=== PATIENT | female | born 1940 | race American Indian/Alaskan Native ===

== ENCOUNTER 2017-06-20 10:35 | Emergency (ER) | payer SELFPAY ==
[2017-06-20 10:50] VITALS: BP 191/75
== END 2017-06-20 13:42 | disposition left against medical advice (07) ==
LOC: ED 10:35
DX: R51 Headache (principal); Z53.21 Procedure and treatment not carried out due to patient leaving prior to being seen by health care provider

== ENCOUNTER 2020-05-26 08:09 | Observation (INO) | payer MEDICARE ==
[2020-05-26] MEDS ORDERED: ASPIRIN 325 MG TAB PO ONE (08:43)
--- NOTE | 2020-05-26 08:48 | Emergency Department Report ---
ED Chest Pain HPI - General Chief Complaint: Chest Pain Stated Complaint: CHEST PAIN/SOB Time Seen by Provider: 05/26/20 08:38 Source: EMS Mode of arrival: Stretcher Limitations: No Limitations - History of Present Illness Initial Comments: Patient is a 71-eapr-bzb-[place] female with past medical history of hypertension diabetes end-stage renal disease who is presenting with chest discomfort. States the discomfort was located center chest accompanied with shortness of breath. States this started before she was placed on the dialysis machine. Patient states she did not get any of her dialysis today. States the pain resolved spontaneously. She is denies any cough cold congestion fevers chills nausea vomiting at this time. - Related Data Allergies Allergy/AdvReac Type Severity Reaction Status Date / Time No Known Allergies Allergy Unverified 06/20/17 10:50 Heart Score - HEART Score History: Slightly suspicious EKG: Non-specific Age: > 65 Risk factors: 1-2 risk factors Troponin: < normal limit HEART Score: 4 - EKG Read Time Time EKG Completed: 08:37 EKG Read Time: 08:40 ED Review of Systems ROS: Stated complaint: CHEST PAIN/SOB Other details as noted in HPI Comment: All other systems reviewed and negative ED Past Medical Hx - Past Medical History Hx Hypertension: Yes Hx Kidney Stones: Yes Additional medical history: Anemia - Surgical History Additional Surgical History: Hysterectomy - Social History Smoking Status: Never Smoker ED Physical Exam - General Limitations: No Limitations General appearance: alert, in no apparent distress - Head Head exam: Present: atraumatic, normocephalic - Eye Eye exam: Present: normal appearance - ENT ENT exam: Present: mucous membranes moist - Neck Neck exam: Present: normal inspection - Respiratory Respiratory exam: Present: normal lung sounds bilaterally. Absent: respiratory distress, wheezes, rales, rhonchi - Cardiovascular Cardiovascular Exam: Present: regular rate, normal rhythm, normal heart sounds. Absent: systolic murmur, diastolic murmur, rubs, gallop - GI/Abdominal GI/Abdominal exam: Present: soft, normal bowel sounds. Absent: distended, tende rness, guarding, rebound - Extremities Exam Extremities exam: Present: normal inspection - Back Exam Back exam: Present: normal inspection - Neurological Exam Neurological exam: Present: alert, oriented X3 - Psychiatric Psychiatric exam: Present: normal affect, normal mood - Skin Skin exam: Present: warm, dry, intact, normal color. Absent: rash ED Course Vital Signs 05/26/20 08:16 Temperature 97.7 F Pulse Rate 70 Respiratory 18 Rate Blood Pressure 154/65 O2 Sat by Pulse 96 Oximetry DAVIDSON score - Davidson Score Age > 65: (1) Yes Aspirin use within the Past 7 Days: (0) No 3 or more CAD Risk Factors: (1) Yes 2 or more Angina events in past 24 hrs: (0) No Known CAD with more than 50% Stenosis: (0) No Elevated Cardiac Markers: (0) No ST Deviation Greater than 0.5mm: (0) No DAVIDSON Score: 2 ED Medical Decision Making - Lab Data Result diagrams: 05/26/20 08:48 05/26/20 08:48 Lab Results 05/26/20 05/26/20 05/26/20 Range/Units 08:48 08:48 08:48 WBC 5.1 (4.5-11.0) K/mm3 RBC 2.97 L (3.65-5.03) M/mm3 Hgb 9.6 L (10.1-14.3) gm/dl Hct 28.4 L (30.3-42.9) % MCV 96 (79-97) fl MCH 32 (28-32) pg MCHC 34 (30-34) % RDW 13.1 L (13.2-15.2) % Plt Count 182 (140-440) K/mm3 Lymph % (Auto) 26.8 (13.4-35.0) % [place] % (Auto) 8.7 H (0.0-7.3) % Eos % (Auto) 2.3 (0.0-4.3) % Baso % (Auto) 0.4 (0.0-1.8) % Lymph # (Auto) 1.4 (1.2-5.4) K/mm3 [place] # (Auto) 0.4 (0.0-0.8) K/mm3 Eos # (Auto) 0.1 (0.0-0.4) K/mm3 Baso # (Auto) 0.0 (0.0-0.1) K/mm3 Seg Neutrophils % 61.8 (40.0-70.0) % Seg Neutrophils # 3.1 (1.8-7.7) K/mm3 PT 14.6 (12.2-14.9) Sec. INR 1.15 H (0.87-1.13) APTT 39.2 H (24.2-36.6) Sec. Sodium (137-145) mmol/L Potassium (3.6-5.0) mmol/L Chloride (98-107) mmol/L Carbon Dioxide (22-30) mmol/L Anion Gap mmol/L BUN (7-17) mg/dL Creatinine (0.6-1.2) mg/dL Estimated GFR ml/min BUN/Creatinine Ratio % Glucose (65-100) mg/dL Calcium (8.4-10.2) mg/dL Troponin T < 0.010 (0.00-0.029) ng/mL 05/26/20 Range/Units 08:48 WBC (4.5-11.0) K/mm3 RBC (3.65-5.03) M/mm3 Hgb (10.1-14.3) gm/dl Hct (30.3-42.9) % MCV (79-97) fl MCH (28-32) pg MCHC (30-34) % RDW (13.2-15.2) % Plt Count (140-440) K/mm3 Lymph % (Auto) (13.4-35.0) % [place] % (Auto) (0.0-7.3) % Eos % (Auto) (0.0-4.3) % Baso % (Auto) (0.0-1.8) % Lymph # (Auto) (1.2-5.4) K/mm3 [place] # (Auto) (0.0-0.8) K/mm3 Eos # (Auto) (0.0-0.4) K/mm3 Baso # (Auto) (0.0-0.1) K/mm3 Seg Neutrophils % (40.0-70.0) % Seg Neutrophils # (1.8-7.7) K/mm3 PT (12.2-14.9) Sec. INR (0.87-1.13) APTT (24.2-36.6) Sec. Sodium 130 L (137-145) mmol/L Potassium 4.2 (3.6-5.0) mmol/L Chloride 93.7 L (98-107) mmol/L Carbon Dioxide 29 (22-30) mmol/L Anion Gap 12 mmol/L BUN 32 H (7-17) mg/dL Creatinine 4.7 H (0.6-1.2) mg/dL Estimated GFR 11 ml/min BUN/Creatinine Ratio 7 % Glucose 116 H (65-100) mg/dL Calcium 8.7 (8.4-10.2) mg/dL Troponin T (0.00-0.029) ng/mL - EKG Data -: EKG Interpreted by Hi EKG shows normal: sinus rhythm, axis, intervals, QRS complexes, ST-T waves Rate: normal - EKG Data Interpretation: normal EKG (except occational PAC) - Radiology Data [facility] [address] [place] [address] XRay Report Signed Patient: MARINA FARLEY MR#: [id number] : 1940 Acct:[id number] Age/Sex: 80 / F ADM Date: 05/26/20 Loc: ED Attending Dr: Ordering Physician: MIGUELINA LARIOS MD Date of Service: 05/26/20 Procedure(s): XR chest 1V ap Accession Number(s): [id number] cc: MIGUELINA LARIOS MD Fluoro Time In Minutes: CHEST 1 VIEW 05/26/2020 8:58 AM INDICATION / CLINICAL INFORMATION: chest pain. COMPARISON: None available. FINDINGS: SUPPORT DEVICES: None. HEART / MEDIASTINUM: No significant abnormality. LUNGS / PLEURA: Mild increased perihilar prominence could represent some increased pulmonary vascularity most prominently in the right perihilar region. No pleural effusion or focal consolidation No pneumothorax. ADDITIONAL FINDINGS: No significant additional findings. IMPRESSION: 1. Increased perihilar interstitial prominence and pulmonary vascularity suggested. Shon is most significant right hilum. Findings appear to represent pulmonary vascularity however follow-up r ecommended. Signer Name: James Patel MD Signed: 05/26/2020 9:19 AM Workstation Name: [id number] - Medical Decision Making Patient is chest pain-free at this time however her heart score is 4. Patient be admitted to the hospitalist service for further cardiac evaluation. Critical Care Time: Yes (30) Critical care attestation.: If time is entered above; I have spent that time in minutes in the direct care of this critically ill patient, excluding procedure time. ED Disposition Clinical Impression: Chest pain, ESRD (end stage renal disease) Disposition: DC-01 TO HOME OR SELFCARE Is pt being admited?: Yes Does the pt Need Aspirin: No Condition: Stable Time of Disposition: 10:44
[2020-05-26 09:08] LABS: Basophils % (Auto) 0.4 % (0.0-1.8); Eosinophils # (Auto) 0.1 K/mm3 (0.0-0.4); Eosinophils % (Auto) 2.3 % (0.0-4.3); Hematocrit 28.4 % (30.3-42.9); Hemoglobin 9.6 gm/dl (10.1-14.3); Lymphocytes # (Auto) 1.4 K/mm3 (1.2-5.4); Lymphocytes % (Auto) 26.8 % (13.4-35.0); Mean Corpuscular HGB Conc 34 % (30-34); Mean Corpuscular Volume 96 fl (79-97); Monocytes # (Auto) 0.4 K/mm3 (0.0-0.8); Monocytes % (Auto) 8.7 % (0.0-7.3); Platelet Count 182 K/mm3 (140-440); Red Blood Count 2.97 M/mm3 (3.65-5.03); Red Cell Distribution Width 13.1 % (13.2-15.2)
[2020-05-26 09:17] LABS: INR 1.15 (0.87-1.13)
[2020-05-26 09:18] LABS: Partial Thromboplastin Time 39.2 Sec. (24.2-36.6)
--- NOTE | 2020-05-26 09:23 | XRay Report ---
CHEST 1 VIEW 05/26/2020 8:58 AM INDICATION / CLINICAL INFORMATION: chest pain. COMPARISON: None available. FINDINGS: SUPPORT DEVICES: None. HEART / MEDIASTINUM: No significant abnormality. LUNGS / PLEURA: Mild increased perihilar prominence could represent some increased pulmonary vascular ity most prominently in the right perihilar region. No pleural effusion or focal consolidation No pne umothorax. ADDITIONAL FINDINGS: No significant additional findings. IMPRESSION: 1. Increased perihilar interstitial prominence and pulmonary vascularity suggested. Shon is most sign ificant right hilum. Findings appear to represent pulmonary vascularity however follow-up recommended . Signer Name: James Patel MD Signed: 05/26/2020 9:19 AM Workstation Name: [id number]
[2020-05-26 09:46] LABS: Calcium 8.7 mg/dL (8.4-10.2)
--- NOTE | 2020-05-26 11:28 | History and Physical Report ---
History of Present Illness Date of examination: 05/26/20 Date of admission: 05/26/20 10:45 Chief complaint: Chest pain History of present illness: Patient is a 52-nrzn-cyr-[place] female with past medical history of hypertension diabetes end-stage renal disease who is presented to the ER today with complaints of chest discomfort. States the discomfort was located center chest accompanied with shortness of breath. States this started before she was placed on the dialysis machine. Patient states she did not get any of her dialysis today. States the pain resolved spontaneously. She is denies any cough cold congestion fevers chills nausea vomiting at this time. Past medical History: h/o end-stage renal disease on hemodialysis, diabetes mellitus type 2, hypertension Past surgical History: s/p left arm AV fistula placement Social History: Lives with family, denies any smoking, drinking and elicit drug abuse. Family History: Significant for hypertension Review of System: Constitutional: no fever, no chills, no weight loss Ears, eyes, nose, mouth and throat: no nasal congestion, no nasal discharge, no sinus pressure, no vision change, no red eye. Neck: No neck pain or rigidity. Cardiovascular: + chest pain, no orthopnea, no palpitations, no leg swelling Respiratory: No shortness of breath, no cough, no congestion, no wheezing Gastrointestinal: no abdominal pain, no nausea, no vomiting Genitourinary : no dysuria, no hematuria Musculoskeletal: no joint swelling or muscle ache Integumentary: no rash, no pruritis Neurological: no parathesias, no numbness, no tingling Endocrine: no cold or heat intolerance, no polyuria or polydipsia Hematologic/Lymphatic: no easy bruising, no easy bleeding, no gland swelling Allergic/Immunologic: no urticaria, no angioedema. Medications and Allergies Allergies Allergy/AdvReac Type Severity Reaction Status Date / Time No Known Allergies Allergy Unverified 06/20/17 10:50 Home Medications Medication Instructions Recorded Confirmed Last Taken Type Aspirin [Adult Aspirin] 81 mg PO QDAY 05/26/20 05/26/20 Unknown History Divalproex [Jama ESCOTO] 125 mg PO BID 05/26/20 05/26/20 Unknown History Hydralazine HCl 100 mg PO TID 05/26/20 05/26/20 Unknown History Insulin Lispro Prot/Lispro 6 unit SQ HS 05/26/20 05/26/20 Unknown History [HumaLOG MIX 75/25] Metoprolol [Lopressor] 12.5 mg PO BID 05/26/20 05/26/20 Unknown History allopurinoL [Zyloprim] 50 mg PO QDAY 05/26/20 05/26/20 Unknown History amLODIPine [Norvasc] 10 mg PO DAILY 05/26/20 05/26/20 Unknown History cloNIDine [Catapres] 0.2 mg PO TID 05/26/20 05/26/20 Unknown History Exam - Physical Exam Narrative exam: GENERAL: well-developed and well-nourished elderly -[place]iber[place] female lying on bed appeared to be in no discomfort. HEENT: Normocephalic. Atraumatic. No conjunctival congestion or icterus. Patient has moist mucous membranes. NECK: Supple. Trachea midline. CHEST/LUNGS: Clear to auscultated bilaterally, breathing nonlabored. No wheezes crackles or rhonchi. HEART/CARDIOVASCULAR: Regular in rate and rhythm. S1 and S2 positive. ABDOMEN: Abdomen is soft, nontender. Patient has normal bowel sounds. SKIN: There is no rash. Warm and dry. NEURO: No focal motor deficit. Follows command. MUSCULOSKELETAL: No joint effusion or tenderness. EXTRIMITY: No edema, no cyanosis or clubbing. PSYCH: Cooperative. - Constitutional Vitals: Temp Pulse Resp BP Pulse Ox 97.7 F 70 18 154/65 96 05/26/20 08:16 05/26/20 08:16 05/26/20 08:16 05/26/20 08:16 05/26/20 08:16 HEART Score - HEART Score EKG: Non-specific Age: > 65 Risk factors: 1-2 risk factors Troponin: Troponin T < 0.010 ng/mL (0.00-0.029) 05/26/20 08:48 Troponin: < normal limit Results - Labs CBC & Chem 7: 05/26/20 08:48 05/26/20 08:48 Labs: Abnormal lab results 05/26/20 05/26/20 05/26/20 Range/Units 08:48 08:48 08:48 RBC 2.97 L (3.65-5.03) M/mm3 Hgb 9.6 L (10.1-14.3) gm/dl Hct 28.4 L (30.3-42.9) % RDW 13.1 L (13.2-15.2) % [place] % (Auto) 8.7 H (0.0-7.3) % INR 1.15 H (0.87-1.13) APTT 39.2 H (24.2-36.6) Sec. Sodium 130 L (137-145) mmol/L Chloride 93.7 L (98-107) mmol/L BUN 32 H (7-17) mg/dL Creatinine 4.7 H (0.6-1.2) mg/dL Glucose 116 H (65-100) mg/dL Assessment and Plan Acute chest pain -- will admit to telemetry bed - monitor with serial CE and EKG - will place on Aspirin, statin - as needed SL NTG and iv morphin for pain - Monitor BP, add betablocker and ACEI if BP tolerates - order 2D echo and stress test in the am - NPO after midnight End-stage renal disease on hemodialysis, consulted shaper hand Diabetes mellitus type 2, resume home insulin regimen, consistent carb diet, SSI Hypertension, resume home medications, hydralazine as needed IV for SBP greater than 160 Anemia of chronic disease, monitor H&H Mild hyponatremia, repeat BMP in the morning - provide DVT Px with heparin
[2020-05-26] MEDS ORDERED: ONDANSETRON 4 MG/2 ML INJ IV PRN (11:29)
[2020-05-26] MEDS ORDERED: hydrALAZINE 20 MG/1 ML INJ IV PRN (11:29)
[2020-05-26] MEDS ORDERED: ACETAMINOPHEN 325 MG TAB PO PRN (11:29)
[2020-05-26] MEDS ORDERED: oxyCODONE /ACETAMINOPHEN 5-325MG TAB PO PRN (11:29)
[2020-05-26] MEDS: HEPARIN 5,000 UNIT/1 ML VIAL SUB-Q SCH ×2 (14:22→22:58)
--- NOTE | 2020-05-26 15:58 | Event Note ---
Date: 05/26/20 Appreciate nephrology consult, official consult to follow. In short, this is a patient with ESRD on HD who presents with chest pain on HD (only received few minutes of treatment). Reviewed labs, vitals; plan for HD in AM if no obvious chest pain or active cardiac disease noted
[2020-05-26] MEDS ORDERED: SODIUM CHLORIDE 0.9% 100 ML IV PRN (15:59)
[2020-05-26] MEDS ORDERED: INSULIN NPH/REGULAR 70/30 INJ SUB-Q SCH (18:00)
[2020-05-26 18:27] LABS: Hepatitis B Surface Antigen Non-Reactive (Negative); Hepatitis C Virus Antibody Non-Reactive (NonReactive)
[2020-05-26] MEDS ORDERED: cloNIDine 0.2 MG TAB PO SCH (20:00)
[2020-05-26] MEDS ORDERED: LISPRO SQ SCH (22:00)
[2020-05-26] MEDS ORDERED: METOPROLOL TARTRATE 25 MG TAB PO SCH (22:00)
[2020-05-26] MEDS ORDERED: INSULIN LISPRO PROT SQ SCH (22:00)
[2020-05-26] MEDS ORDERED: DIVALPROEX DR 125 MG TAB PO SCH (22:00)
[2020-05-26] MEDS: INSULIN REGULAR, HUMAN 100 UNITS/1 ML SUB-Q SCH (22:00)
[2020-05-26] MEDS: hydrALAZINE 100 MG TAB PO SCH (22:57)
[2020-05-26] MEDS: METOPROLOL TARTRATE 25 MG TAB PO SCH (22:57)
[2020-05-26] MEDS: DOCUSATE SODIUM 100 MG CAP PO SCH (22:57)
[2020-05-27] MEDS ORDERED: REGADENOSON 0.4 MG/5 ML INJ IV ONE (06:39)
[2020-05-27] MEDS: HEPARIN 5,000 UNIT/1 ML VIAL SUB-Q SCH ×2 (06:47→15:55)
[2020-05-27] MEDS: INSULIN REGULAR, HUMAN 100 UNITS/1 ML SUB-Q SCH ×3 (09:13→15:55)
--- NOTE | 2020-05-27 09:55 | Consultation ---
History of Present Illness - Reason for Consult Consult date: 05/27/20 end stage renal disease Requesting physician: LUIS A DENIS - History of Present Illness This is a 80 year-old woman with ESRD who presents for chest pain Patient usually dialyzes // at [facility]. Last HD 05/26, was unable to complete due to chest pain Currently, patient denies any issues including dyspnea, edema, access issues, nausea, vomiting, headaches. Past History Past Medical History: ESRD, hypertension Past Surgical History: No surgical history Social history: no significant social history Family history: no significant family history Medications and Allergies Allergies Allergy/AdvReac Type Severity Reaction Status Date / Time No Known Allergies Allergy Unverified 06/20/17 10:50 Home Medications Medication Instructions Recorded Confirmed Last Taken Type Aspirin [Adult Aspirin] 81 mg PO QDAY 05/26/20 05/26/[address] [Depakote Dr] 125 mg PO BID 05/26/20 05/26/20 Unknown History Hydralazine HCl 100 mg PO TID 05/26/20 05/26/20 Unknown History Insulin Lispro Prot/Lispro 6 unit SQ HS 05/26/20 05/26/20 Unknown History [HumaLOG Mix 75/25 Vial] Metoprolol [Lopressor TAB] 12.5 mg PO BID 05/26/20 05/26/20 Unknown History allopurinoL [Zyloprim] 50 mg PO QDAY 05/26/20 05/26/20 Unknown History amLODIPine 10 mg PO DAILY 05/26/20 05/26/20 Unknown History cloNIDine [Catapres] 0.2 mg PO TID 05/26/20 05/26/20 Unknown History Pantoprazole [Protonix] 40 mg PO QDAY #30 tablet 05/27/20 Unknown Rx Active Meds: Active Medications Acetaminophen (Acetaminophen 325 Mg Tab) 650 mg PO Q4H PRN PRN Reason: Pain MILD(1-3)/Fever >100.5/WILD Allopurinol (Allopurinol 100 Mg Tab) 50 mg PO QDAY [facility] Amlodipine Besylate (Amlodipine 10 Mg Tab) 10 mg PO DAILY [facility] Aspirin (Aspirin Ec 81 Mg Tab) 81 mg PO QDAY [facility] Atorvastatin Calcium (Atorvastatin 40 Mg Tab) 40 mg PO QHS [facility] Last Admin: 05/26/20 22:57 Dose: 40 mg Documented by: Divalproex Sodium (Divalproex Dr 125 Mg Tab) 125 mg PO BID [facility] Last Admin: 05/26/20 22:58 Dose: 125 mg Documented by: Docusate Sodium (Docusate Sodium 100 Mg Cap) 100 mg PO BID [facility] Last Admin: 05/26/20 22:57 Dose: 100 mg Documented by: Famotidine (Famotidine 10 Mg Tab) 10 mg PO QDAY [facility] Heparin Sodium (Porcine) (Heparin 5,000 Unit/1 Ml Vial) 5,000 unit SUB-Q Q8HR [facility] Last Admin: 05/27/20 06:47 Dose: 5,000 unit Documented by: Hydralazine HCl (Hydralazine 20 Mg/1 Ml Inj) 5 mg IV Q30MIN PRN PRN Reason: Hypertension Hydralazine HCl (Hydralazine 100 Mg Tab) 100 mg PO TID [facility] Last Admin: 05/26/20 22:57 Dose: 100 mg Documented by: Sodium Chloride (Nacl 0.9%) 100 mls @ 999 mls/hr IV EDIE PRN PRN Reason: Hypotension Insulin Human Isoph/Insulin Regular (Insulin Nph/Regular 70/30 Inj) 6 unit SUB- Q QPMDIAB [facility] Last Admin: 05/26/20 17:15 Dose: Not Given Documented by: Insulin Human Regular (Insulin Regular, Human 100 Units/1 Ml) 0 units SUB-Q ACHS [facility]; Protocol Last Admin: 05/27/20 09:13 Dose: Not Given Documented by: Metoprolol Tartrate (Metoprolol Tartrate 25 Mg Tab) 25 mg PO BID [facility] Last Admin: 05/26/20 22:57 Dose: 25 mg Documented by: Ondansetron HCl (Ondansetron 4 Mg/2 Ml Inj) 4 mg IV Q8H PRN PRN Reason: N/V unrelieved by Reglan Oxycodone/Acetaminophen (Oxycodone /Acetaminophen 5-325mg Tab) 1 tab PO Q6H PRN PRN Reason: Pain, Moderate (4-6) Review of Systems All systems: negative (as per HPI) Exam - Vital Signs Vital signs: Vital Signs Temp Pulse Resp BP Pulse Ox 97.7 F 70 18 154/65 96 05/26/20 08:16 05/26/20 08:16 05/26/20 08:16 05/26/20 08:16 05/26/20 08:16 - Physical Exam Narrative exam: Constitutional: no acute distress Head: NC/AT Neck: supple Lungs: clear to auscultation CV: RRR, no M/R/G Abdomen: soft, non-tender, bowel sounds present Back: nontender Extremities: no edema, pulses WNL Skin: intact Neuro: no focal deficits, alert and oriented x4 Results - Lab Results 05/26/20 08:48 05/26/20 08:48 Most recent lab results Calcium 8.7 mg/dL (8.4-10.2) 05/26/20 08:48 Assessment and Plan This is a 80 year old woman who presents with chest pain # ESRD: HD today to ensure able to tolerate without chest pain, solute clearance - daily labs - renally dose meds - avoid nephrotoxins - renal diet # Anemia: last hemoglobin 9.6, mildly below goal, ESAs with HD prn # HTN: UF as tolerated. BP high initially # Secondary Hyperparathyroidism: continue home binders as needed # Chest Pain: per primary/cardiology, appreciated, s/p stress test
[2020-05-27] MEDS ORDERED: amLODIPine 10 MG TAB PO SCH (10:00)
[2020-05-27] MEDS ORDERED: allopurinoL 100 MG TAB PO SCH (10:00)
[2020-05-27] MEDS ORDERED: ASPIRIN EC 81 MG TAB PO SCH (10:00)
[2020-05-27] MEDS ORDERED: FAMOTIDINE 10 MG TAB PO SCH (10:00)
[2020-05-27] MEDS: hydrALAZINE 100 MG TAB PO SCH ×2 (11:31→18:53)
--- NOTE | 2020-05-27 14:22 | Consultation ---
History of Present Illness Consult date: 05/27/20 Consult reason: chest pain History of present illness: The patient is a 80-year-old woman with end-stage renal disease on hemodialysis, no documented significant cardiac history. She was brought to the hospital from her hemodialysis unit with complaint of chest pain to the emergency room. On the triage record, it is reported that symptoms began right at the initiation of dialysis and nursing report was that there might have been air in the dialysis line. On presentation to emergency room, ECGs were normal with no ST ST changes of ischemia, serial troponin levels were normal. The patient was ordered for a Lexiscan thallium stress test and cardiology consult. On my interview with the patient, she is unable to characterize her symptoms. She actually now denies that she had any chest pain, but was instead feeling upset at the time of the event, due to ongoing family and social issues. She did however consent to continue with the stress test which was completed, results are pending. Past History Past Medical History: hypertension, renal failure Medications and Allergies Allergies Allergy/AdvReac Type Severity Reaction Status Date / Time No Known Allergies Allergy Unverified 06/20/17 10:50 Home Medications Medication Instructions Recorded Confirmed Last Taken Type Aspirin [Adult Aspirin] 81 mg PO QDAY 05/26/20 05/26/[address] [DepaKOTE DR] 125 mg PO BID 05/26/20 05/26/20 Unknown History Hydralazine HCl 100 mg PO TID 05/26/20 05/26/20 Unknown History Insulin Lispro Prot/Lispro 6 unit SQ HS 05/26/20 05/26/20 Unknown History [HumaLOG MIX 75/25] Metoprolol [Lopressor] 12.5 mg PO BID 05/26/20 05/26/20 Unknown History allopurinoL [Zyloprim] 50 mg PO QDAY 05/26/20 05/26/20 Unknown History amLODIPine [Norvasc] 10 mg PO DAILY 05/26/20 05/26/20 Unknown History cloNIDine [Catapres] 0.2 mg PO TID 05/26/20 05/26/20 Unknown History Active Meds: Active Medications Acetaminophen (Acetaminophen 325 Mg Tab) 650 mg PO Q4H PRN PRN Reason: Pain MILD(1-3)/Fever >100.5/WILD Allopurinol (Allopurinol 100 Mg Tab) 50 mg PO QDAY [facility] Amlodipine Besylate (Amlodipine 10 Mg Tab) 10 mg PO DAILY [facility] Aspirin (Aspirin Ec 81 Mg Tab) 81 mg PO QDAY [facility] Atorvastatin Calcium (Atorvastatin 40 Mg Tab) 40 mg PO QHS [facility] Last Admin: 05/26/20 22:57 Dose: 40 mg Documented by: Divalproex Sodium (Divalproex Dr 125 Mg Tab) 125 mg PO BID [facility] Last Admin: 05/26/20 22:58 Dose: 125 mg Documented by: Docusate Sodium (Docusate Sodium 100 Mg Cap) 100 mg PO BID [facility] Last Admin: 05/26/20 22:57 Dose: 100 mg Documented by: Famotidine (Famotidine 10 Mg Tab) 10 mg PO QDAY [facility] Heparin Sodium (Porcine) (Heparin 5,000 Unit/1 Ml Vial) 5,000 unit SUB-Q Q8HR [facility] Last Admin: 05/27/20 06:47 Dose: 5,000 unit Documented by: Hydralazine HCl (Hydralazine 20 Mg/1 Ml Inj) 5 mg IV Q30MIN PRN PRN Reason: Hypertension Hydralazine HCl (Hydralazine 100 Mg Tab) 100 mg PO TID [facility] Last Admin: 05/27/20 11:31 Dose: Not Given Documented by: Sodium Chloride (Nacl 0.9%) 100 mls @ 999 mls/hr IV EDIE PRN PRN Reason: Hypotension Insulin Human Isoph/Insulin Regular (Insulin Nph/Regular 70/30 Inj) 6 unit SUB- Q QPMDIAB [facility] Last Admin: 05/26/20 17:15 Dose: Not Given Documented by: Insulin Human Regular (Insulin Regular, Human 100 Units/1 Ml) 0 units SUB-Q ACHS [facility]; Protocol Last Admin: 05/27/20 11:32 Dose: Not Given Documented by: Metoprolol Tartrate (Metoprolol Tartrate 25 Mg Tab) 25 mg PO BID [facility] Last Admin: 05/26/20 22:57 Dose: 25 mg Documented by: Ondansetron HCl (Ondansetron 4 Mg/2 Ml Inj) 4 mg IV Q8H PRN PRN Reason: N/V unrelieved by Reglan Oxycodone/Acetaminophen (Oxycodone /Acetaminophen 5-325mg Tab) 1 tab PO Q6H PRN PRN Reason: Pain, Moderate (4-6) Review of Systems Cardiovascular: chest pain, no orthopnea, no palpitations, no rapid/irregular heart beat, no edema, no syncope, no lightheadedness, no shortness of breath Physical Examination Vital Signs Temp Pulse Resp BP Pulse Ox 97.7 F 70 18 154/65 96 05/26/20 08:16 05/26/20 08:16 05/26/20 08:16 05/26/20 08:16 05/26/20 08:16 General appearance: no acute distress HEENT: Positive: PERRL Neck: Positive: neck supple Cardiac: Positive: Reg Rate and Rhythm Lungs: Positive: clear to auscultation Neuro: Positive: Grossly Intact Abdomen: Positive: Soft Female genitourinary: deferred Skin: Positive: Clear Extremities: Absent: edema Results 05/26/20 08:48 05/26/20 08:48 EKG interpretations - Telemetry EKG Rhythm: Sinus Rhythm Assessment and Plan - Patient Problems (1) Chest pain Current Visit: Yes Status: Acute Plan to address problem: Patient presented with atypical chest pain, symptoms are poorly characterized and began at the onset of dialysis, the dialysis access line was reported on the nursing record to have been possibly contaminated with air. A Lexiscan thallium stress test ordered by the medical service has been completed, results are pending. Low suspicion for acute cardiac event.
--- NOTE | 2020-05-27 14:31 | Nuclear Medicine Report ---
APPROVED REPORT Exam: Nuclear Stress Test Indication: Chest pain BMI: 0 Stress Test Details Stress Test: Pharmacologic stress testing performed using 0.4 mg of regadenoson per 5 mL given IV over 10 seconds. HR Max Heart Rate (APMHR): 142 bpm Target HR (85% APMHR): 120 bpm BP ECG Resting ECG: Sinus Rhythm Stress ECG: Sinus Rhythm ST Change: None Arrhythmia: None Recovery ECG: Sinus Rhythm Recovery ST Change: None Recovery Arrhythmia: None Clinical Reason for Termination: Completed protocol Stress Symptoms: None Stress ECG Conclusion Patient underwent Lexiscan stress test per protocol, thallium images are pending for test interpretation. NM EXAM: Myocardial Perfusion REST/STRESS Imaging Protocol: Rest Tc-99m/Stress Tc-99m 1 day Resting Data Rest SPECT myocardial perfusion imaging was performed in supine position 45 minutes following the intravenous injection of 10 mCi of Tc-99m Myoview. Time of rest injection: 0730 Pharmacologic Stress Pharmacologic stress test was performed by injecting Regadenoson 0.4 mg IV push followed by the intravenous injection of 28 mCi of Tc-99m Myoview. Time of stress injection: 1338 Gated Stress SPECT was performed 30 minutes after stress injection. The images were gated to evaluate regional wall motion and calculate left ventricular ejection fraction. Study Quality Study: excellent Lung Uptake: Normal Study Data TID = 1.05. Perfusion The rest and stress images show normal perfusion. Normal perfusion on both the stress and rest images. Wall Motion The rest and stress images show normal left ventricular wall motion. Nuclear Conclusion ECG Findings: negative for ischemia Clinical Findings: negative for ischemia Nuclear Findings: negative for ischemia Left Ventricular Function: normal Left ventricular chamber size was within normal limits. There is evidence of mild breast attenuation artifact, otherwise homogeneous uptake of the tracer in all segments, no ischemia demonstrated. There is normal left ventricular systolic function with ejection fraction calculated at 71%. Conclusion Patient underwent Lexiscan stress test per protocol, thallium images are pending for test interpretation.
--- NOTE | 2020-05-27 14:38 | Electrocardiograph Report ---
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
--- NOTE | 2020-05-27 15:38 | Discharge Summary ---
Providers - Providers Date of Admission: 05/26/20 10:45 Date of discharge: 05/27/20 Attending physician: LUIS A DENIS 05/26/20 11:30 Consult to Physician [CONS] Routine Comment: Consulting Provider: STEFANY FOREMAN Physician Instructions: Reason For Exam: esrd 05/26/20 11:31 Consult to Physician [CONS] Routine Comment: Consulting Provider: YOLI BOLIVAR Physician Instructions: Reason For Exam: chest pain Primary care physician: RENAL DIALYSIS TECHNICIAN Hospitalization Condition: Stable Final Discharge Diagnosis (Prints w/discharge instructions): Atypical chest pain likely from GERD, ESRD, DM, HTN Time spent for discharge: 34 minutes Core Measure Documentation - Palliative Care Palliative Care/ Comfort Measures: Not Applicable - Core Measures Any of the following diagnoses?: none Exam - Physical Exam Narrative exam: GENERAL: well-developed and well-nourished elderly -[place] female lying on bed appeared to be in no discomfort. HEENT: Normocephalic. Atraumatic. No conjunctival congestion or icterus. Patient has moist mucous membranes. NECK: Supple. Trachea midline. CHEST/LUNGS: Clear to auscultated bilaterally, breathing nonlabored. No wheezes crackles or rhonchi. HEART/CARDIOVASCULAR: Regular in rate and rhythm. S1 and S2 positive. ABDOMEN: Abdomen is soft, nontender. Patient has normal bowel sounds. SKIN: There is no rash. Warm and dry. NEURO: No focal motor deficit. Follows command. MUSCULOSKELETAL: No joint effusion or tenderness. EXTRIMITY: No edema, no cyanosis or clubbing. PSYCH: Cooperative. - Constitutional Vitals: Temp Pulse Resp BP Pulse Ox 98.6 F 69 18 176/83 99 05/27/20 08:05 05/27/20 08:05 05/27/20 08:05 05/27/20 13:43 05/27/20 08:05 Plan Activity: advance as tolerated Weight Bearing Status: Weight Bear as Tolerated Diet: diabetic, renal Follow up with: APPLE ALFARO MD [Primary Care Provider] - 7 Days YOLI BOLIVAR MD [Staff Physician] - 7 Days Prescriptions: Pantoprazole [Protonix] 40 mg PO QDAY #30 tablet
[2020-05-27] MEDS: DOCUSATE SODIUM 100 MG CAP PO SCH (15:55)
[2020-05-27 18:42] VITALS: BP 169/69
[2020-05-27] MEDS: METOPROLOL TARTRATE 25 MG TAB PO SCH (18:53)
== END 2020-05-27 19:07 | disposition home or self-care (01) ==
LOC: ED 08:09 → 4A 10:45
PROVIDERS: ADMIT Internal Medicine; ATTEND Internal Medicine
DX: R07.89 Other chest pain (principal); I12.0 Hypertensive chronic kidney disease with stage 5 chronic kidney disease or end stage renal disease; N18.6 End stage renal disease; E11.22 Type 2 diabetes mellitus with diabetic chronic kidney disease; D63.1 Anemia in chronic kidney disease; N25.81 Secondary hyperparathyroidism of renal origin; E87.1 Hypo-osmolality and hyponatremia; Z99.2 Dependence on renal dialysis; Z98.890 Other specified postprocedural states; Z79.82 Long term (current) use of aspirin; Z79.4 Long term (current) use of insulin; Z87.442 Personal history of urinary calculi; Z90.710 Acquired absence of both cervix and uterus; Z79.899 Other long term (current) drug therapy
CPT/HCPCS: 36415; 71045; 78452; 80048; 80074; 82962; 84484; 85025; 85610; 85730; 93005; 93017; 96372; 99291; A9270; A9502; G0257; G0378; J1644; J2785

== ENCOUNTER 2020-08-26 06:56 | Emergency (ER) | payer MEDICARE ==
--- NOTE | 2020-08-26 07:45 | Emergency Department Report ---
HPI - General Chief Complaint: Abdominal Pain Time Seen by Provider: 08/26/20 07:20 - HPI HPI: This is a 80-year-old -Trist[place] female who presents to the emergency department with complaint of a 2-day history of some generalized abdominal discomfort and diarrhea. At the time my examination the patient says that the abdominal pain has currently resolved. However, because of her symptoms the patient missed her dialysis session yesterday. She has end-stage renal disease on hemodialysis on Saturday//Saturday. She cannot currently remember the name of her cushion builder or her dialysis center. During her previous visit in May, it was listed that the patient follows at [facility]. Patient also has a history of hypertension. She has not taken anything for symptoms prior to presentation. She denies any recent travel or sick contacts at home. ED Past Medical Hx - Past Medical History Previous Medical History?: Yes Hx Hypertension: Yes Hx Kidney Stones: Yes Additional medical history: Anemia - Surgical History Past Surgical History?: Yes Additional Surgical History: Hysterectomy - Social History Smoking Status: Never Smoker - Medications Home Medications: Home Medications Medication Instructions Recorded Confirmed Last Taken Type Aspirin [Adult Aspirin] 81 mg PO QDAY 05/26/20 05/26/[address] [Depwarrente Dr] 125 mg PO BID 05/26/20 05/26/20 Unknown History Hydralazine HCl 100 mg PO TID 05/26/20 05/26/20 Unknown History Insulin Lispro Prot/Lispro 6 unit SQ HS 05/26/20 05/26/20 Unknown History [HumaLOG Mix 75/25 Vial] Metoprolol [Lopressor TAB] 12.5 mg PO BID 05/26/20 05/26/20 Unknown History allopurinoL [Zyloprim] 50 mg PO QDAY 05/26/20 05/26/20 Unknown History amLODIPine 10 mg PO DAILY 05/26/20 05/26/20 Unknown History cloNIDine [Catapres] 0.2 mg PO TID 05/26/20 05/26/20 Unknown History Pantoprazole [Protonix] 40 mg PO QDAY #30 tablet 05/27/20 Unknown Rx ED Review of Systems ROS: Stated complaint: ABD PAIN Other details as noted in HPI Comment: All other systems reviewed and negative Constitutional: denies: chills, fever Eyes: denies: eye pain, vision change ENT: denies: ear pain, throat pain Respiratory: denies: cough, shortness of breath Cardiovascular: denies: chest pain, palpitations Gastrointestinal: abdominal pain (Currently resolved), diarrhea. denies: nausea, vomiting Genitourinary: denies: dysuria, discharge Musculoskeletal: denies: back pain, arthralgia Skin: denies: rash, lesions Neurological: denies: headache, weakness Physical Exam - Physical Exam Physical Exam: GENERAL: The patient is well-developed well-nourished. HENT: Normocephalic. Atraumatic. Patient has moist mucous membranes. EYES: Extraocular motions are intact. NECK: Supple. Trachea is midline. CHEST/LUNGS: Clear to auscultation. There is no respiratory distress noted. HEART/CARDIOVASCULAR: Regular. There is no tachycardia. There is no murmur. ABDOMEN: Abdomen is soft, nontender. Patient has normal bowel sounds. SKIN: Skin is warm and dry. NEURO: The patient is awake, alert, and oriented. The patient is cooperative. The patient has no focal neurologic deficits. Normal speech. MUSCULOSKELETAL: There is no tenderness or deformity. There is no limitation range of motion. There is a patent left upper extremity dialysis fistula. ED Course - Consultations Consultation #1: 08/26/20 09:[address] Dudley, the cushion builder on-call for the patient's group. We reviewed the patient's vital signs, her physical examination and her labs. He agrees that the patient can be given some Kayexalate for her mild hyperkalemia and discharged home to follow-up for dialysis tomorrow. ED Medical Decision Making - Lab Data Result diagrams: 08/26/20 07:28 08/26/20 07:28 Lab Results 08/26/20 08/26/20 08/26/20 Range/Units 07:28 07:28 07:28 WBC 4.9 (4.5-11.0) K/mm3 RBC 3.70 (3.65-5.03) M/mm3 Hgb 11.7 (10.1-14.3) gm/dl Hct 34.6 (30.3-42.9) % MCV 94 (79-97) fl MCH 32 (28-32) pg MCHC 34 (30-34) % RDW 14.6 (13.2-15.2) % Plt Count 219 (140-440) K/mm3 Lymph % (Auto) 29.2 (13.4-35.0) % [place] % (Auto) 11.0 H (0.0-7.3) % Eos % (Auto) 2.7 (0.0-4.3) % Baso % (Auto) 0.8 (0.0-1.8) % Lymph # (Auto) 1.4 (1.2-5.4) K/mm3 [place] # (Auto) 0.5 (0.0-0.8) K/mm3 Eos # (Auto) 0.1 (0.0-0.4) K/mm3 Baso # (Auto) 0.0 (0.0-0.1) K/mm3 Seg Neutrophils % 56.3 (40.0-70.0) % Seg Neutrophils # 2.7 (1.8-7.7) K/mm3 Sodium 136 L (137-145) mmol/L Potassium 5.6 H (3.6-5.0) mmol/L Chloride 98.7 (98-107) mmol/L Carbon Dioxide 30 (22-30) mmol/L Anion Gap 13 mmol/L BUN 23 H (7-17) mg/dL Creatinine 5.1 H (0.6-1.2) mg/dL Estimated GFR 10 ml/min BUN/Creatinine Ratio 5 % Glucose 96 (65-100) mg/dL Calcium 9.6 (8.4-10.2) mg/dL Total Bilirubin 0.30 (0.1-1.2) mg/dL AST 19 (5-40) units/L ALT 9 (7-56) units/L Alkaline Phosphatase 99 (35-129) units/L Total Protein 8.1 (6.3-8.2) g/dL Albumin 4.0 (3.9-5) g/dL Albumin/Globulin Ratio 1.0 % Lipase 25 (13-60) units/L - Medical Decision Making Patient presents to the emergency department with a complaint of diarrhea and missing her dialysis session yesterday. At the time my examination the patient denies any significant abdominal tenderness to palpation. The abdomen is soft, nondistended and nontoxic in appearance. Patient's labs are mostly unremarkable except for some mild hyperkalemia with a potassium of 5.6, and renal insufficiency consistent with her end-stage renal disease on hemodialysis. I spoke to her nephrology service who agrees with the plan for Kayexalate and discharged home. Patient had some hypotension but it started coming down. She was given a dose of Catapres and instructed to take her home antihypertensive medications. She will return to the emergency department with any worsening of her symptoms or with any acute distress. Critical Care Time: No Critical care attestation.: If time is entered above; I have spent that time in minutes in the direct care of this critically ill patient, excluding procedure time. ED Disposition Clinical Impression: ESRD (end stage renal disease) Hypertension Qualifiers: Hypertension type: primary hypertension Qualified Code(s): I10 - Essential (primary) hypertension Diarrhea Qualifiers: Diarrhea type: unspecified type Qualified Code(s): R19.7 - Diarrhea, unspecified Disposition: DC- TO HOME OR SELFCARE Is pt being admited?: No Condition: Stable Instructions: Dialysis, Diarrhea, Adult, [id number], Hypertension, Adult, Abdominal Pain (ED), Hypertension (ED) Additional Instructions: Please take all medications as prescribed. Follow-up tomorrow for your normal dialysis session. Follow-up with your primary care physician in the next few days. Try to stay away from foods that are high in salt and caffeinated products. Keep a blood pressure log. Return to the emergency department with any worsening of your symptoms, new or concerning symptoms not addressed during this current emergency department visit, or with any acute distress. Referrals: PRIMARY MD DOMINIC [Primary Care Provider] - 2-3 Days Time of Disposition: 09:22
[2020-08-26 08:04] LABS: Calcium 9.6 mg/dL (8.4-10.2)
[2020-08-26 08:05] LABS: Basophils % (Auto) 0.8 % (0.0-1.8); Eosinophils # (Auto) 0.1 K/mm3 (0.0-0.4); Eosinophils % (Auto) 2.7 % (0.0-4.3); Hematocrit 34.6 % (30.3-42.9); Hemoglobin 11.7 gm/dl (10.1-14.3); Lymphocytes # (Auto) 1.4 K/mm3 (1.2-5.4); Lymphocytes % (Auto) 29.2 % (13.4-35.0); Mean Corpuscular HGB Conc 34 % (30-34); Mean Corpuscular Volume 94 fl (79-97); Monocytes # (Auto) 0.5 K/mm3 (0.0-0.8); Platelet Count 219 K/mm3 (140-440); Red Cell Distribution Width 14.6 % (13.2-15.2)
[2020-08-26] MEDS ORDERED: cloNIDine 0.1 MG TAB PO ONE (09:15)
[2020-08-26] MEDS ORDERED: SODIUM POLYSTYRENE 15 GM/60 ML ORAL LIQD PO ONE (09:15)
[2020-08-26 10:09] VITALS: BP 189/99
== END 2020-08-26 10:09 | disposition home or self-care (01) ==
LOC: ED 06:56
DX: I12.0 Hypertensive chronic kidney disease with stage 5 chronic kidney disease or end stage renal disease (principal); N18.6 End stage renal disease; R19.7 Diarrhea, unspecified; Z90.710 Acquired absence of both cervix and uterus; Z79.4 Long term (current) use of insulin; Z79.899 Other long term (current) drug therapy
CPT/HCPCS: 36415; 80053; 83690; 85025

== ENCOUNTER 2020-09-03 10:41 | Emergency (ER) | payer MEDICARE ==
[2020-09-03 11:21] LABS: Basophils % (Auto) 0.5 % (0.0-1.8); Eosinophils # (Auto) 0.1 K/mm3 (0.0-0.4); Eosinophils % (Auto) 2.2 % (0.0-4.3); Hematocrit 37.7 % (30.3-42.9); Hemoglobin 12.6 gm/dl (10.1-14.3); Lymphocytes # (Auto) 2.5 K/mm3 (1.2-5.4); Lymphocytes % (Auto) 37.4 % (13.4-35.0); Mean Corpuscular HGB Conc 33 % (30-34); Mean Corpuscular Volume 92 fl (79-97); Monocytes # (Auto) 0.7 K/mm3 (0.0-0.8); Monocytes % (Auto) 10.9 % (0.0-7.3); Platelet Count 260 K/mm3 (140-440); Red Cell Distribution Width 14.7 % (13.2-15.2)
[2020-09-03 11:38] LABS: Bacteria,Urine 1+ /HPF (Negative); Bilirubin,Urine NEG (Negative); Blood,Urine SM (Negative); Color,Urine Yellow (Yellow); Mucus,Urine FEW /HPF; Urobilinogen,Urine < 2.0 mg/dL (<2.0)
[2020-09-03 11:40] LABS: WBC,Urine > 182.0 /HPF (0.0-6.0)
[2020-09-03 11:45] LABS: Albumin 4.3 g/dL (3.9-5); Calcium 9.9 mg/dL (8.4-10.2)
--- NOTE | 2020-09-03 12:19 | Emergency Department Report ---
ED General Adult HPI - General Chief complaint: Abdominal Pain Stated complaint: STOMACH PAIN Time Seen by Provider: 09/03/20 12:00 Source: patient Mode of arrival: Ambulatory Limitations: No Limitations - History of Present Illness Initial comments: 80-year-old female, history of ESRD, presents to ED for "stomach growling." Patient and her , who is at bedside, state patient was experiencing diarrhea last week, for which she came to the ER. They report prior to having bowel movements, her stomach would began to growl, then patient will have to go use the bathroom. Patient reports her diarrhea is currently resolved, however her stomach is still growling very loudly. She states the growling goes back and forth from the left side to the right side. Patient denies any abdominal pain, back pain, nausea, vomiting, diarrhea. She denies any urinary frequency, dysuria, hematuria. Patient states her appetite is normal. Patient's only com plaint is that her stomach is growling too loudly. -: week(s) (1) Location: abdomen Severity scale (0 -10): 1 Quality: other (Painless) Consistency: intermittent Improves with: none Worsens with: none Associated Symptoms: denies: chest pain, fever/chills, loss of appetite, nausea/vomiting - Related Data Home Medications Medication Instructions Recorded Confirmed Last Taken Aspirin [Adult Aspirin] 81 mg PO QDAY 05/26/20 05/26/20 Unknown Divalproex [[place] Dr] 125 mg PO BID 05/26/20 05/26/20 Unknown Hydralazine HCl 100 mg PO TID 05/26/20 05/26/20 Unknown Insulin Lispro Prot/Lispro 6 unit SQ HS 05/26/20 05/26/20 Unknown [HumaLOG Mix 75/25 Vial] Metoprolol [Lopressor TAB] 12.5 mg PO BID 05/26/20 05/26/20 Unknown allopurinoL [Zyloprim] 50 mg PO QDAY 05/26/20 05/26/20 Unknown amLODIPine 10 mg PO DAILY 05/26/20 05/26/20 Unknown cloNIDine [Catapres] 0.2 mg PO TID 05/26/20 05/26/20 Unknown Previous Rx's Medication Instructions Recorded Last Taken Type Pantoprazole [Protonix] 40 mg PO QDAY #30 tablet 05/27/20 Unknown Rx cephALEXin [Keflex] 500 mg PO Q12HR 3 Days #6 cap 09/03/20 Unknown Rx Allergies Allergy/AdvReac Type Severity Reaction Status Date / Time No Known Allergies Allergy Verified 08/26/20 08:09 ED Review of Systems ROS: Stated complaint: STOMACH PAIN Other details as noted in HPI Comment: All other systems reviewed and negative Constitutional: denies: chills, fever Gastrointestinal: denies: abdominal pain, nausea, vomiting, diarrhea, constipation, melena, hematochezia Genitourinary: denies: dysuria, frequency, hematuria Musculoskeletal: denies: back pain ED Past Medical Hx - Past Medical History Previous Medical History?: Yes Hx Hypertension: Yes Hx Renal Disease: Yes Hx Kidney Stones: Yes Additional medical history: Anemia - Surgical History Past Surgical History?: Yes Additional Surgical History: Hysterectomy - Social History Smoking Status: Never Smoker - Medications Home Medications: Home Medications Medication Instructions Recorded Confirmed Last Taken Type Aspirin [Adult Aspirin] 81 mg PO QDAY 05/26/20 05/26/[address] [Depakote Dr] 125 mg PO BID 05/26/20 05/26/20 Unknown History Hydralazine HCl 100 mg PO TID 05/26/20 05/26/20 Unknown History Insulin Lispro Prot/Lispro 6 unit SQ HS 05/26/20 05/26/20 Unknown History [HumaLOG Mix 75/25 Vial] Metoprolol [Lopressor TAB] 12.5 mg PO BID 05/26/20 05/26/20 Unknown History allopurinoL [Zyloprim] 50 mg PO QDAY 05/26/20 05/26/20 Unknown History amLODIPine 10 mg PO DAILY 05/26/20 05/26/20 Unknown History cloNIDine [Catapres] 0.2 mg PO TID 05/26/20 05/26/20 Unknown History Pantoprazole [Protonix] 40 mg PO QDAY #30 tablet 05/27/20 Unknown Rx cephALEXin [Keflex] 500 mg PO Q12HR 3 Days #6 cap 09/03/20 Unknown Rx ED Physical Exam - General Limitations: No Limitations General appearance: alert, in no apparent distress - Head Head exam: Present: atraumatic, normocephalic - Eye Eye exam: Present: normal appearance, EOMI - ENT ENT exam: Present: mucous membranes moist - Neck Neck exam: Present: normal inspection - Respiratory Respiratory exam: Present: normal lung sounds bilaterally. Absent: respiratory distress - Cardiovascular Cardiovascular Exam: Present: regular rate, normal rhythm - GI/Abdominal GI/Abdominal exam: Present: soft. Absent: distended, tenderness - Extremities Exam Extremities exam: Present: normal inspection - Neurological Exam Neurological exam: Present: alert, oriented X3 - Psychiatric Psychiatric exam: Present: normal affect, normal mood - Skin Skin exam: Present: warm, dry, intact, normal color ED Course Vital Signs 09/03/20 09/03/20 10:57 12:46 Temperature 98.8 F Pulse Rate 71 66 Respiratory 16 18 Rate Blood Pressure 187/75 171/83 [Right] O2 Sat by Pulse 98 98 Oximetry ED Medical Decision Making - Lab Data Result diagrams: 09/03/20 11:10 09/03/20 11:10 - Medical Decision Making Abdomen is soft and nontender. Labs are unremarkable except for evidence of a UTI. Patient will be discharged with antibiotics. Outpatient follow-up advised, return precautions given. Critical care attestation.: If time is entered above; I have spent that time in minutes in the direct care of this critically ill patient, excluding procedure time. ED Disposition Clinical Impression: UTI (urinary tract infection) Disposition: -01 TO HOME OR SELFCARE Is pt being admited?: No Condition: Stable Instructions: Urinary Tract Infection, Adult, [id number], Abdominal Pain (ED) Prescriptions: cephALEXin [Keflex] 500 mg PO Q12HR 3 Days #6 cap Referrals: PRIMARY CARE, [Primary Care Provider] - 3-5 Days Time of Disposition: 12:21
[2020-09-03 12:48] VITALS: BP 171/83
== END 2020-09-03 12:51 | disposition home or self-care (01) ==
LOC: ED 10:41
DX: N39.0 Urinary tract infection, site not specified (principal); I10 Essential (primary) hypertension; Z90.710 Acquired absence of both cervix and uterus; Z79.899 Other long term (current) drug therapy
CPT/HCPCS: 36415; 80053; 81001; 83690; 85025

== ENCOUNTER 2020-09-27 08:11 | Emergency (ER) | payer MEDICARE ==
[2020-09-27 08:26] VITALS: BP 236/99
== END 2020-09-27 09:20 | disposition left against medical advice (07) ==
LOC: ED 08:11
DX: Z53.21 Procedure and treatment not carried out due to patient leaving prior to being seen by health care provider (principal)

== ENCOUNTER 2021-02-25 12:03 | Emergency (ER) | payer MEDICARE ==
--- NOTE | 2021-02-25 15:34 | Emergency Department Report ---
- General Chief complaint: Weakness Stated complaint: WEAKNESS Time Seen by Provider: 02/25/21 14:21 Source: patient, old records reviewed (Normal stress test May 2020) Mode of arrival: Ambulatory Limitations: No Limitations - History of Present Illness Initial comments: 81-year-old female with end-stage renal disease currently dialysis, hypertension, anemia, and seizures presents to the hospital with complaints of generalized weakness and missing dialysis today. Patient last received dialysis 2 days ago. She feels as though they took off more fluid than usual and she has been feeling weak ever since. Today she felt too weak to go to dialysis. She denies pain, nausea, vomiting, cough, shortness of breath, or fever. Patient is vaccinated for Covid analysis analyst: Dr. Martinez - Related Data Home Medications Medication Instructions Recorded Confirmed Last Taken Aspirin [Adult Aspirin] 81 mg PO QDAY 05/26/20 05/26/[address] [Depakote Dr] 125 mg PO BID 05/26/20 05/26/20 Unknown Hydralazine HCl 100 mg PO TID 05/26/20 05/26/20 Unknown Insulin Lispro Prot/Lispro 6 unit SQ HS 05/26/20 05/26/20 Unknown [HumaLOG Mix 75/25 Vial] Metoprolol [Lopressor TAB] 12.5 mg PO BID 05/26/20 05/26/20 Unknown allopurinoL [Zyloprim] 50 mg PO QDAY 05/26/20 05/26/20 Unknown amLODIPine 10 mg PO DAILY 05/26/20 05/26/20 Unknown cloNIDine [Catapres] 0.2 mg PO TID 05/26/20 05/26/20 Unknown Previous Rx's Medication Instructions Recorded Last Taken Type Pantoprazole [Protonix] 40 mg PO QDAY #30 tablet 05/27/20 Unknown Rx cephALEXin [Keflex] 500 mg PO Q12HR 3 Days #6 cap 09/03/20 Unknown Rx Allergies Allergy/AdvReac Type Severity Reaction Status Date / Time No Known Allergies Allergy Verified 08/26/20 08:09 ED Review of Systems ROS: Stated complaint: WEAKNESS Other details as noted in HPI Comment: All other systems reviewed and negative ED Past Medical Hx - Past Medical History Previous Medical History?: Yes Hx Hypertension: Yes Hx Renal Disease: Yes Hx Seizures: Yes Hx Kidney Stones: Yes Additional medical history: Anemia - Surgical History Additional Surgical History: Hysterectomy - Social History Smoking Status: Never Smoker - Medications Home Medications: Home Medications Medication Instructions Recorded Confirmed Last Taken Type Aspirin [Adult Aspirin] 81 mg PO QDAY 05/26/20 05/26/[address] [Depakote Dr] 125 mg PO BID 05/26/20 05/26/20 Unknown History Hydralazine HCl 100 mg PO TID 05/26/20 05/26/20 Unknown History Insulin Lispro Prot/Lispro 6 unit SQ HS 05/26/20 05/26/20 Unknown History [HumaLOG Mix 75/25 Vial] Metoprolol [Lopressor TAB] 12.5 mg PO BID 05/26/20 05/26/20 Unknown History allopurinoL [Zyloprim] 50 mg PO QDAY 05/26/20 05/26/20 Unknown History amLODIPine 10 mg PO DAILY 05/26/20 05/26/20 Unknown History cloNIDine [Catapres] 0.2 mg PO TID 05/26/20 05/26/20 Unknown History Pantoprazole [Protonix] 40 mg PO QDAY #30 tablet 05/27/20 Unknown Rx cephALEXin [Keflex] 500 mg PO Q12HR 3 Days #6 cap 09/03/20 Unknown Rx ED Physical Exam - General Limitations: No Limitations - Other Other exam information: General: No acute distress Head: Atraumatic Eyes: normal appearance ENT: Moist mucous membranes Neck: Normal appearance, no midline tenderness Chest: Clear to auscultation bilaterally CV: Regular rate and rhythm Abdomen: Soft, normal bowel sounds, nontender, nondistended, no rebound or guarding Back: Normal inspection Extremity: Normal inspection, full range of motion, left arm AV access with palpable thrill Neuro: Alert O x 3, no facial asymmetry, speech clear, no gross motor sensory deficit Psych: Appropriate behavior Skin: No rash ED Course Vital Signs 02/25/21 13:56 Temperature 98.3 F Pulse Rate 66 Respiratory 16 Rate Blood Pressure 175/81 [Right] O2 Sat by Pulse 98 Oximetry - Consultations Consultation #1: 02/25/21 17:[address] Cameron analysis analyst on-call for Dr. Martinez. Upon call back Case discussed with Dr. Cameron who advises discharge since labs and x-ray unremarkable. advises patient to call center on Saturday for dialysis Saturday or Saturday ED Medical Decision Making - Lab Data Result diagrams: 02/25/21 15:10 02/25/21 15:10 Lab Results 02/25/21 02/25/21 02/25/21 Range/Units 14:02 15:10 15:10 WBC 3.8 L (4.5-11.0) K/mm3 RBC 3.49 L (3.65-5.03) M/mm3 Hgb 10.8 (10.1-14.3) gm/dl Hct 32.9 (30.3-42.9) % MCV 94 (79-97) fl MCH 31 (28-32) pg MCHC 33 (30-34) % RDW 15.3 H (13.2-15.2) % Plt Count 198 (140-440) K/mm3 Lymph % (Auto) 45.4 H (13.4-35.0) % [place] % (Auto) 10.1 H (0.0-7.3) % Eos % (Auto) 2.1 (0.0-4.3) % Baso % (Auto) 0.5 (0.0-1.8) % Lymph # (Auto) 1.7 (1.2-5.4) K/mm3 [place] # (Auto) 0.4 (0.0-0.8) K/mm3 Eos # (Auto) 0.1 (0.0-0.4) K/mm3 Baso # (Auto) 0.0 (0.0-0.1) K/mm3 Seg Neutrophils % 41.9 (40.0-70.0) % Seg Neutrophils # 1.6 L (1.8-7.7) K/mm3 Sodium 135 L (137-145) mmol/L Potassium 5.0 (3.6-5.0) mmol/L Chloride 94.5 L (98-107) mmol/L Carbon Dioxide 26 (22-30) mmol/L Anion Gap 20 mmol/L BUN 37 H (7-17) mg/dL Creatinine 7.1 H (0.6-1.2) mg/dL Estimated GFR 7 ml/min BUN/Creatinine Ratio 5 % Glucose 76 (65-100) mg/dL POC Glucose 70 (70-105) mg/dL Calcium 8.6 (8.4-10.2) mg/dL - EKG Data -: EKG Interpreted by Me EKG shows normal: sinus rhythm, intervals (QTC 469), QRS complexes (QRS duration 96), ST-T waves (No STEMI) Rate: normal (61) - Radiology Data Radiology results: report reviewed CHEST 1 VIEW 02/25/2021 4:33 PM INDICATION / CLINICAL INFORMATION: gen weakness, missed dialysis. COMPARISON: 05/26/2020 FINDINGS: SUPPORT DEVICES: None. HEART / MEDIASTINUM: No significant abnormality. LUNGS / PLEURA: Mild increased bi lateral perihilar interstitial prominence No pneumothorax. ADDITIONAL FINDINGS: No significant additional findings. IMPRESSION: 1. No significant change - Medical Decision Making 81-year-old female presents to the hospital complaining of generalized weakness. Patient is still able to ambulate. Patient complain of fatigue without pain or respiratory or infectious symptoms. Labs unremarkable. EKG unremarkable. Case discussed with analysis analyst Dr. Cameron who agrees patient does not meet criteria for emergent dialysis and suggest to follow-up with her dialysis center on Saturday for possible dialysis Saturday or Saturday. I called to inform him of the plan and he voices understanding. Critical Care Time: No Critical care attestation.: If time is entered above; I have spent that time in minutes in the direct care of this critically ill patient, excluding procedure time. ED Disposition Clinical Impression: Generalized weakness, ESRD (end stage renal disease), Missed dialysis Disposition: HOME / SELF CARE / HOMELESS Is pt being admited?: No Does the pt Need Aspirin: No Condition: Stable Instructions: Weakness, [id number], Dialysis Additional Instructions: Call your dialysis center on Saturday to see if they will perform dialysis on Saturday or wait until Saturday. Return if symptoms worsen prior to your dialysis appointment Referrals: STEFANY MARTINEZ MD [Staff Physician] - 2-3 Days Time of Disposition: 18:25
[2021-02-25 15:50] LABS: Basophils % (Auto) 0.5 % (0.0-1.8); Eosinophils # (Auto) 0.1 K/mm3 (0.0-0.4); Eosinophils % (Auto) 2.1 % (0.0-4.3); Hematocrit 32.9 % (30.3-42.9); Hemoglobin 10.8 gm/dl (10.1-14.3); Lymphocytes # (Auto) 1.7 K/mm3 (1.2-5.4); Lymphocytes % (Auto) 45.4 % (13.4-35.0); Mean Corpuscular HGB Conc 33 % (30-34); Mean Corpuscular Volume 94 fl (79-97); Monocytes # (Auto) 0.4 K/mm3 (0.0-0.8); Monocytes % (Auto) 10.1 % (0.0-7.3); Platelet Count 198 K/mm3 (140-440); Red Blood Count 3.49 M/mm3 (3.65-5.03); Red Cell Distribution Width 15.3 % (13.2-15.2)
[2021-02-25 15:51] LABS: Calcium 8.6 mg/dL (8.4-10.2)
--- NOTE | 2021-02-25 16:52 | XRay Report ---
CHEST 1 VIEW 02/25/2021 4:33 PM INDICATION / CLINICAL INFORMATION: gen weakness, missed dialysis. COMPARISON: 05/26/2020 FINDINGS: SUPPORT DEVICES: None. HEART / MEDIASTINUM: No significant abnormality. LUNGS / PLEURA: Mild increased bilateral perihilar interstitial prominence No pneumothorax. ADDITIONAL FINDINGS: No significant additional findings. IMPRESSION: 1. No significant change Signer Name: James Patel MD Signed: 02/25/2021 4:48 PM Workstation Name: [id number]
[2021-02-25 19:56] VITALS: BP 176/84
--- NOTE | 2021-02-26 10:55 | Electrocardiograph Report ---
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
== END 2021-02-25 19:30 | disposition home or self-care (01) ==
LOC: ED 12:03
DX: M62.81 Muscle weakness (generalized) (principal); N18.6 End stage renal disease; Z91.15 Patient's noncompliance with renal dialysis
CPT/HCPCS: 36415; 71045; 80048; 82962; 85025; 93005; 99284